=== PATIENT | male | born 1965 | race Two or more races ===

== ENCOUNTER 2023-06-02 00:16 | Inpatient (IN) | payer OTHER ==
[~2023-06-02] VITALS: Ht 185.4 cm; Wt 83.7 kg
[2023-06-02] MEDS ORDERED: SODIUM CHLORIDE 0.9% 1,000 ML IV ONE (00:45)
[2023-06-02 01:11] LABS: Basophils # (auto) 0.1 10 ^3/uL (0-0.2); Basophils % (auto) 1.2 % (0.0-2.0); Eosinophils # (auto) 0 10 ^3/uL (0-0.8); Eosinophils % (auto) 0.6 % (0.0-7.0); Hematocrit 44.2 % (41.0-53.0); Hemoglobin 15.3 g/dL (13.5-17.5); Lymphocytes # (auto) 2.5 10 ^3/uL (0.4-5.4); Mean Corpuscular Hemoglobin 28.2 pg (28.0-32.0); Mean Corpuscular Hgb Conc. 34.5 g/dL (32.0-36.0); Mean Corpuscular Volume 81.7 fL (80.0-100.0); Monocytes # (auto) 0.4 10 ^3/uL (0-1.3); Monocytes % (auto) 7.4 % (0.0-12.0); Neutrophils # (auto) 2.4 10 ^3/uL (1.6-8.6); Neutrophils % (auto) 43.8 % (37.0-80.0); Nucleated Red Blood Cells % 0.2 %; Red Blood Cells 5.41 10^6/uL (4.5-5.90); Red Cell Distribution Width 13.1 % (11.8-14.3); White Blood Cell 5.4 10^3/uL (4.4-10.8)
[2023-06-02 02:01] LABS: Alanine Aminotransferase 30 U/L (7-40); Albumin 4.7 g/dL (3.2-4.8); Alkaline Phosphatase 98 U/L (46-116); Anion Gap 8 (5-15); Aspartate Aminotransferase 19 U/L (13-40); BUN/Creatinine Ratio 11.8 (10.0-20.0); Bilirubin, Total 0.3 mg/dL (0.2-1.0); Blood Urea Nitrogen 18 mg/dL (9-23); Calcium 9.8 mg/dL (8.7-10.4); Carbon Dioxide 27 mmol/L (20-30); Chloride 96 mmol/L (98-107); Potassium 4.5 mmol/L (3.5-5.1); Sodium 131 mmol/L (136-145); Total Protein 7.8 g/dL (5.7-8.2)
[2023-06-02 02:02] LABS: Glucose 439 mg/dL (74-106)
[2023-06-02] MEDS ORDERED: ONDANSETRON HCL 4 MG/2 ML VIAL IV ONE (02:15)
[2023-06-02] MEDS ORDERED: MORPHINE SULFATE 4 MG/ML SYR/VIAL IV ONE (02:15)
[2023-06-02] MEDS ORDERED: InsuLIN REG 1unit/0.01ml Soln (100units/ml) IV ONE ×2 (02:15→05:15)
[2023-06-02] MEDS ORDERED: ASPirin 81 mg TAB PO ONE (02:15)
[2023-06-02 02:34] LABS: Magnesium 2.3 mg/dL (1.6-2.6)
[2023-06-02 03:05] LABS: INR 0.97 (0.9-1.15); Partial Thromboplastin Time 25.8 SEC (24.5-34.5); Prothrombin Time 10.2 sec (9.3-11.8)
[2023-06-02] MEDS ORDERED: LABETALOL HCL 5 MG/ML 4ML SYRINGE IV ONE (04:00)
[2023-06-02] MEDS ORDERED: HYDROcodone-ACET 10/325MG TAB PO ONE (04:30)
[2023-06-02] MEDS ORDERED: ACETAMINOPHEN 325 MG TAB PO PRN (09:00)
[2023-06-02] MEDS ORDERED: DEXTROSE (50%) 50ML SYRG IV PRN (09:00)
[2023-06-02] MEDS ORDERED: SODIUM CHLORIDE 0.9% 500 ML IV ONE (09:00)
[2023-06-02 09:22] LABS: Triglycerides 772 mg/dL (< 150)
[2023-06-02 09:24] LABS: Cholesterol 238 mg/dL (< 200); HDL Cholesterol 38 mg/dL (40-59)
[2023-06-02] MEDS: ENOXAPARIN SOD 40 MG/0.4 ML SYRINGE SC SCH (10:30)
[2023-06-02] MEDS: LEVOTHYROXINE SODIUM 25 MCG TAB PO SCH (10:30)
[2023-06-02 11:19] LABS: Urine Epithelial Cast None Seen /hpf (<5)
[2023-06-02] MEDS: ACCU-CHEK COMFORT CURVE STRIP VI SCH ×3 (11:28→23:04)
[2023-06-02 11:30] LABS: Urine Bacteria FEW /hpf (None Seen); Urine Blood Negative /uL (Negative); Urine Clarity Clear (Clear); Urine Color Yellow (Yellow); Urine Mucus FEW (None Seen); Urine Protein, UAD TRACE (Negative); Urine Specific Gravity 1.047 (1.001-1.035); Urine Urobilinogen Normal (Negative); Urine WBC 5 /hpf (0 - 3)
[2023-06-02] MEDS: InsuLIN REG 1unit/0.01ml Soln (100units/ml) SC SCH ×3 (11:49→23:02)
[2023-06-02] MEDS ORDERED: GLIP10TA9 PO (18:47)
[2023-06-02] MEDS ORDERED: MELO-335 PO (18:47)
[2023-06-02] MEDS ORDERED: METH-1182 PO (18:47)
[2023-06-03 04:41] LABS: Eosinophils # (auto) 0.1 10 ^3/uL (0-0.8); Hemoglobin 12.7 g/dL (13.5-17.5); Monocytes # (auto) 0.3 10 ^3/uL (0-1.3); Nucleated Red Blood Cells % 0.1 %
[2023-06-03 04:44] LABS: Basophils # (auto) 0 10 ^3/uL (0-0.2); Basophils % (auto) 0.4 % (0.0-2.0); Eosinophils % (auto) 1.3 % (0.0-7.0); Hematocrit 38.2 % (41.0-53.0); Lymphocytes # (auto) 2.8 10 ^3/uL (0.4-5.4); Lymphocytes % (auto) 52.4 % (10.0-50.0); Mean Corpuscular Hemoglobin 26.9 pg (28.0-32.0); Mean Corpuscular Hgb Conc. 33.3 g/dL (32.0-36.0); Mean Corpuscular Volume 80.6 fL (80.0-100.0); Monocytes % (auto) 5.6 % (0.0-12.0); Neutrophils # (auto) 2.2 10 ^3/uL (1.6-8.6); Neutrophils % (auto) 40.3 % (37.0-80.0); Red Blood Cells 4.74 10^6/uL (4.5-5.90); Red Cell Distribution Width 13.3 % (11.8-14.3); White Blood Cell 5.4 10^3/uL (4.4-10.8)
[2023-06-03 05:14] LABS: Alanine Aminotransferase 18 U/L (7-40); Albumin 3.9 g/dL (3.2-4.8); Alkaline Phosphatase 57 U/L (46-116); Anion Gap 6 (5-15); Aspartate Aminotransferase 11 U/L (13-40); BUN/Creatinine Ratio 9.8 (10.0-20.0); Blood Urea Nitrogen 13 mg/dL (9-23); Carbon Dioxide 28 mmol/L (20-30); Chloride 103 mmol/L (98-107); Potassium 3.8 mmol/L (3.5-5.1); Sodium 137 mmol/L (136-145)
[2023-06-03 05:15] LABS: Bilirubin, Total 0.5 mg/dL (0.2-1.0); Total Protein 6.7 g/dL (5.7-8.2)
[2023-06-03 05:25] LABS: Glucose 244 mg/dL (74-106)
[2023-06-03] MEDS: LEVOTHYROXINE SODIUM 25 MCG TAB PO SCH (07:06)
[2023-06-03] MEDS: ACCU-CHEK COMFORT CURVE STRIP VI SCH ×4 (07:08→21:21)
[2023-06-03] MEDS: InsuLIN REG 1unit/0.01ml Soln (100units/ml) SC SCH ×4 (07:14→21:14)
[2023-06-03 09:34] VITALS: BP 143/87; PULSE 77; RESP 17; TEMP 97.9; O2SAT 99
[2023-06-03 10:15] VITALS: BP 143/87; PULSE 77; RESP 17; TEMP 97.9; O2SAT 99
[2023-06-03] MEDS: ENOXAPARIN SOD 40 MG/0.4 ML SYRINGE SC SCH (10:28)
[2023-06-03] MEDS ORDERED: INSULIN LANTUS (GLARGINE) 1 /0.01ml (100units/ml) SC ONE (10:30)
[2023-06-03] MEDS ORDERED: NIFEdipine ER 30 MG TAB PO ONE (11:30)
[2023-06-03] MEDS: SODIUM CHLORIDE 0.9% 1,000 ML IV SCH (12:08)
[2023-06-03 13:00] VITALS: BP 131/96; PULSE 83; RESP 17; TEMP 97.7; O2SAT 100
[2023-06-03 17:00] VITALS: BP_SYST 128; BP_SYST 133; BP_DIAS 66; BP_DIAS 83; PULSE 89; PULSE 95; RESP 18; RESP 19; TEMP 98.2; TEMP 98.3; O2SAT 100; O2SAT 93
[2023-06-03 19:34] VITALS: RESP 19; O2SAT 99
[2023-06-03 22:00] VITALS: BP 124/94; PULSE 82; RESP 19; TEMP 97.7; O2SAT 99
[2023-06-03] MEDS ORDERED: ATORVASTATIN 20 MG TAB PO SCH (22:00)
[2023-06-04 05:00] VITALS: BP 140/78; PULSE 76; RESP 18; TEMP 97.9; O2SAT 100
[2023-06-04] MEDS: LEVOTHYROXINE SODIUM 25 MCG TAB PO SCH (05:54)
[2023-06-04] MEDS: InsuLIN REG 1unit/0.01ml Soln (100units/ml) SC SCH ×2 (06:05→10:30)
[2023-06-04 06:14] LABS: Alanine Aminotransferase 18 U/L (7-40); Alkaline Phosphatase 47 U/L (46-116); Calcium 8.7 mg/dL (8.7-10.4); Carbon Dioxide 25 mmol/L (20-30); Chloride 103 mmol/L (98-107)
[2023-06-04 06:15] LABS: Albumin 3.6 g/dL (3.2-4.8); Anion Gap 8 (5-15); Aspartate Aminotransferase 11 U/L (13-40); BUN/Creatinine Ratio 11.7 (10.0-20.0); Bilirubin, Total 0.7 mg/dL (0.2-1.0); Blood Urea Nitrogen 13 mg/dL (9-23); Glucose 195 mg/dL (74-106); Magnesium 1.8 mg/dL (1.6-2.6); Potassium 3.7 mmol/L (3.5-5.1); Sodium 136 mmol/L (136-145); Total Protein 6.2 g/dL (5.7-8.2); White Blood Cell 3.9 10^3/uL (4.4-10.8)
[2023-06-04] MEDS: ACCU-CHEK COMFORT CURVE STRIP VI SCH ×2 (06:17→10:30)
[2023-06-04 06:19] LABS: Hematocrit 37.4 % (41.0-53.0); Hemoglobin 12.2 g/dL (13.5-17.5); Mean Corpuscular Hemoglobin 26.8 pg (28.0-32.0); Mean Corpuscular Hgb Conc. 32.7 g/dL (32.0-36.0); Red Blood Cells 4.56 10^6/uL (4.5-5.90)
[2023-06-04 06:57] LABS: Band Neutrophils % (manual) 0; Basophils % (manual) 0 (0.0-2.0); Blast Cells 0; Eosinophils % (manual) 0 (0-7); Metamyelocytes % 0; Myelocytes % 0; Promyelocytes % 0; Reactive Lymphocytes 0
[2023-06-04] MEDS ORDERED: INSULIN LANTUS (GLARGINE) 1 /0.01ml (100units/ml) SC SCH (07:00)
[2023-06-04] MEDS: SODIUM CHLORIDE 0.9% 1,000 ML IV SCH (07:09)
[2023-06-04] MEDS ORDERED: DEXTROSE (50%) 50ML SYRG IV PRN (07:30)
[2023-06-04 08:00] VITALS: PULSE 77; RESP 21; O2SAT 97
[2023-06-04 08:20] VITALS: BP 138/73; PULSE 77; RESP 21; TEMP 98.1; O2SAT 97
[2023-06-04] MEDS ORDERED: NIFEdipine ER 30 MG TAB PO SCH (10:00)
[2023-06-04] MEDS: ENOXAPARIN SOD 40 MG/0.4 ML SYRINGE SC SCH (10:25)
[2023-06-04 11:04] LABS: Lymphocytes % (manual) 58 (10.0-50.0); Monocytes % (manual) 11 (0-12)
[2023-06-04 11:05] LABS: Platelet Estimate Decreased
[2023-06-04] MEDS ORDERED: ACCU-CHEK COMFORT CURVE STRIP VI SCH (11:30)
[2023-06-04] MEDS ORDERED: InsuLIN REG 1unit/0.01ml Soln (100units/ml) SC SCH ×2 (11:30→22:00)
[2023-06-04 12:57] VITALS: BP 141/79; PULSE 71; RESP 17; TEMP 97.6; O2SAT 100
[2023-06-04] MEDS ORDERED: METF-370 PO (13:16)
[2023-06-04] MEDS ORDERED: NIFE1TAB31 PO (13:16)
[2023-06-04] MEDS ORDERED: ATO40T PO (13:16)
[2023-06-04] MEDS ORDERED: GLIP10TA21 PO (13:16)
[2023-06-04 15:31] VITALS: BP 141/79; PULSE 71; RESP 17; TEMP 97.6; O2SAT 100
[2023-06-05 08:07] LABS: Free Thyroxine Index 1.5 (1.2-4.9); Thyroxine (T4) 4.9 ug/dL (4.5-12.0)
== END 2023-06-04 16:25 | disposition home or self-care (01) | DRG 199 ==
LOC: ER 00:16 → OVERFLOW 08:54 → EAST 06-03 09:42
PROVIDERS: ADMIT Internal Medicine Geriatric Medicine; ATTEND Internal Medicine Geriatric Medicine
DX: I16.0 Hypertensive urgency (principal); N17.0 Acute kidney failure with tubular necrosis; D69.6 Thrombocytopenia, unspecified; E11.65 Type 2 diabetes mellitus with hyperglycemia; D64.9 Anemia, unspecified; E03.9 Hypothyroidism, unspecified; I10 Essential (primary) hypertension; E78.2 Mixed hyperlipidemia; Z91.199 Patient's noncompliance with other medical treatment and regimen due to unspecified reason
CPT/HCPCS: 36415; 71250; 74176; 80053; 80061; 81001; 82010; 82962; 83036; 83605; 83690; 83735; 83880; 84439; 84443; 84484; 85007; 85025; 85027; 85610; 85730; 87086; 96361; 96374; 96376; G0378; J1815

== ENCOUNTER 2024-02-16 17:38 | Emergency (ER) | payer OTHER ==
[~2024-02-16] VITALS: Ht 180.3 cm; Wt 80.0 kg
[~2024-02-16 17:38] MED LIST: ATOR-507 PO; GLIP10TA21 PO; GLIP10TA9 PO; METF-370 PO; METH-1182 PO; NIFE1TAB31 PO
[2024-02-16 19:13] LABS: Urine Bacteria None Seen /hpf (None Seen)
[2024-02-16 20:02] LABS: Urine Blood Negative /uL (Negative); Urine Clarity Clear (Clear); Urine Color Light-Yellow (Yellow); Urine Protein, UAD Negative (Negative); Urine Specific Gravity 1.046 (1.001-1.035); Urine Urobilinogen Normal (Negative); Urine WBC <1 /hpf (0 - 3)
[2024-02-16 22:04] LABS: Basophils # (auto) 0 10 ^3/uL (0-0.2); Basophils % (auto) 0.4 % (0.0-2.0); Eosinophils # (auto) 0 10 ^3/uL (0-0.8); Eosinophils % (auto) 0.3 % (0.0-7.0); Lymphocytes # (auto) 2.5 10 ^3/uL (0.4-5.4); Monocytes # (auto) 0.2 10 ^3/uL (0-1.3); Neutrophils # (auto) 1.9 10 ^3/uL (1.6-8.6); White Blood Cell 4.6 10^3/uL (4.4-10.8)
[2024-02-16 22:07] LABS: Hemoglobin 14.8 g/dL (13.5-17.5); Lymphocytes % (auto) 53.4 % (10.0-50.0); Mean Corpuscular Hemoglobin 27.2 pg (28.0-32.0); Mean Corpuscular Hgb Conc. 33.7 g/dL (32.0-36.0); Mean Corpuscular Volume 80.6 fL (80.0-100.0); Monocytes % (auto) 5.2 % (0.0-12.0); Neutrophils % (auto) 40.7 % (37.0-80.0); Platelet Count (auto) 124 10^3/uL (140-450); Red Blood Cells 5.46 10^6/uL (4.5-5.90); Red Cell Distribution Width 13.3 % (11.8-14.3)
[2024-02-16 22:51] LABS: Alanine Aminotransferase 15 U/L (7-40); Alkaline Phosphatase 85 U/L (46-116); Anion Gap 7 (5-15); Aspartate Aminotransferase 10 U/L (13-40); BUN/Creatinine Ratio 8.1 (10.0-20.0); Bilirubin, Total 0.4 mg/dL (0.2-1.0); Blood Urea Nitrogen 11 mg/dL (9-23); Calcium 10.3 mg/dL (8.7-10.4); Carbon Dioxide 28 mmol/L (20-31); Chloride 99 mmol/L (98-107); Glucose 350 mg/dL (74-106); Potassium 4.4 mmol/L (3.5-5.1); Sodium 134 mmol/L (136-145); Total Protein 8.1 g/dL (5.7-8.2)
[2024-02-16] MEDS ORDERED: NITR-87 PO (23:47)
[2024-02-17 00:13] VITALS: BP 164/90; PULSE 61; RESP 18; TEMP 98.2; O2SAT 100
== END 2024-02-17 00:13 | disposition home or self-care (01) ==
LOC: ER 17:38
DX: E11.65 Type 2 diabetes mellitus with hyperglycemia (principal); N39.0 Urinary tract infection, site not specified; Z79.899 Other long term (current) drug therapy
CPT/HCPCS: 36415; 74176; 80053; 81001; 85025